=== PATIENT | male | born 1965 ===

== ENCOUNTER 2020-07-31 17:47 | Outpatient (CLI) | payer OTHER | END 2020-07-31 17:48 | disposition home or self-care (01) | LOC: PPH VACUNA 17:47 | DX: Z23 Encounter for immunization (principal) ==

== ENCOUNTER 2021-06-13 10:50 | Outpatient (CLI) | payer OTHER | END 2021-06-13 15:00 | disposition home or self-care (01) | LOC: LAB 10:50 | PROVIDERS: ATTEND Emergency Medicine Pediatric Emergency Medicine | DX: Z03.818 Encounter for observation for suspected exposure to other biological agents ruled out (principal) ==

== ENCOUNTER 2021-08-12 08:00 | Outpatient (CLI) | payer OTHER | END 2021-08-12 08:30 | disposition home or self-care (01) | LOC: PPH VACUNA 08:00 | PROVIDERS: ATTEND Emergency Medicine Pediatric Emergency Medicine | DX: Z23 Encounter for immunization (principal) ==

== ENCOUNTER 2022-07-21 08:00 | Outpatient (CLI) | payer OTHER | END 2022-07-21 08:05 | disposition home or self-care (01) | LOC: PPH VACUNA 08:00 | PROVIDERS: ATTEND Emergency Medicine Pediatric Emergency Medicine | DX: Z23 Encounter for immunization (principal) ==

== ENCOUNTER 2022-08-18 10:23 | Outpatient (CLI) | payer OTHER | END 2022-08-18 10:33 | disposition home or self-care (01) | LOC: PPH VACUNA 10:23 | PROVIDERS: ATTEND Emergency Medicine Pediatric Emergency Medicine | DX: Z23 Encounter for immunization (principal) ==

== ENCOUNTER → 2023-07-13 | Outpatient (CLI) | payer OTHER | END | disposition home or self-care (01) | LOC: PPH VACUNA | PROVIDERS: ATTEND Emergency Medicine Pediatric Emergency Medicine | DX: Z23 Encounter for immunization (principal) ==

== ENCOUNTER 2024-08-29 03:45 | Outpatient (CLI) | payer OTHER | END 2024-08-29 04:00 | disposition home or self-care (01) | LOC: PPH VACUNA 03:45 | PROVIDERS: ATTEND Emergency Medicine Pediatric Emergency Medicine | DX: Z23 Encounter for immunization (principal) ==